=== PATIENT | female | born 1990 | race Caucasian/White ===

== ENCOUNTER 2020-07-31 07:51 | Inpatient (IN) | payer OTHER, SELFPAY ==
[2020-07-31] VITALS (8 sets, daily range): BP systolic 102–127; BP diastolic 47–74; PULSE 76–98; RESP 13–20; TEMP 36.3–36.8; O2SAT 100; BMI 27.5
--- NOTE | ~2020-07-31 | CT_ITS ---
EXAMINATION: CT brain wo con EXAM DATE: 07/31/2020 08:55 INDICATION: New onset seizures. TECHNIQUE: Spiral CT of the head was performed without contrast. Axial, coronal and sagittal images were reviewed. The dose-length product (DLP) for this examination was 605.33 mGy-cm. The exposure w as tailored according to patient size, and iterative reconstruction (ASIR) was used as additional dos e reduction technique. There is no prior study for comparison. FINDINGS: There is no acute intraparenchymal hemorrhage. No evidence of intraparenchymal brain mass lesion. No evidence of acute infarction. There is no mass effect or midline shift. The ventricles are normal in size. There are no extra-axial collections. There are no acute calvarial fractures. T he orbits are unremarkable. Soft tissue is unremarkable. The visualized sinuses and mastoid air ginger ls are well aerated. IMPRESSION: Normal head CT examination. Reviewed, dictated and finalized at location A. IMPRESSION: Normal head CT examination.
--- NOTE | 2020-07-31 08:27 | ECG_ITS ---
Measurements Intervals [place] Rate: 95 P: 49 AR: 153 QRS: 42 QRSD: 88 T: 15 QT: 344 QTc: 434 Interpretive Statements SINUS RHYTHM POSSIBLE LEFT ATRIAL ENLARGEMENT BORDERLINE ST-T WAVE ABNORMALITY- ANTERIOR LEADS BORDERLINE ECG Electronically Signed On 07-31-2020 8:53:35 CDT by Jose E Caldera D.O.
--- NOTE | 2020-07-31 08:28 | ED.SEIZURE ---
HPI - Seizure General Chief Complaint: Seizure Stated Complaint: Seizure Time Seen by Provider: 07/31/20 08:09 Source: patient Mode of arrival: EMS Limitations: no limitations History of Present Illness HPI Narrative: 29-year-old female G3, P2 Currently approximately [address] Woods for care Arrives per EMS after reportedly having a seizure at home today Witnessed to the seizure is not here at this time but it was said to be generalized and brief and self-limited and followed by a brief postictal period which had improved by the time she arrived here She did bite her tongue and she does complain that her jaw is sore No prior history of seizures, no problems with any of her earlier pregnancies, no history of hypertension or -induced hypertension previously MD complaint: seizure Related Data Home Medications Medication Instructions Recorded Confirmed docosahexaenoic acid [DHA ] mg PO 07/31/20 Allergies Allergy/AdvReac Type Severity Reaction Status Date / Time ibuprofen Allergy Swelling Verified 07/31/20 07:58 Review of Systems Review of Systems: All systems reviewed & are unremarkable except as noted in HPI and below Constitutional: Constitutional: Reports no additional constitutional complaints, Denies chills, Denies fever(s) and Denies headache(s) Eyes: Eyes: Reports no additional eye complaints and Denies change in vision ENT: Denies headache(s) and Denies sore throat Comments: Sore jaw, wound to tongue Cardiovascular: Cardiovascular: Denies chest pain and Denies dyspnea Respiratory: Respiratory: Denies cough and Denies dyspnea Gastrointestinal: Gastrointestinal: Denies abdominal pain, Denies diarrhea and Denies vomiting Genitourinary: Genitourinary: Denies urinary frequency and Denies dysuria Musculoskeletal: Musculoskeletal: Reports myalgias, Denies deformity, Denies arthralgias, Denies joint swelling and Denies numbness Integumentary/Breasts: Skin/Breast: Denies rash and Denies wounds Neurologic: Denies headache(s), Denies focal weakness and Denies numbness Psychiatric: Psychiatric: Reports no additional psychiatric complaints Endocrine: Endocrine: Reports no additional endocrine complaints Hematologic/Lymphatic: Hematologic/Lymphatic: Reports no additional hematologic/lymphatic complaints Allergic/Immunologic: Allergic/Immunologic: Reports no additional allergic/immunologic complaints Exam Const: General: cooperative, no acute distress and alert Orientation/consciousness: patient oriented x3 (alert) HENMT: Head: normocephalic and atraumatic Ears: external ears normal General nose exam: no epistaxis Other: Minor laceration/contusion to the right side of the tongue Eyes: Conjunctivae: conjunctivae normal EOM: EOMs intact bilaterally Neck: Neck: normal visual inspection, no meningeal signs, supple and no JVD Resp: Effort & Inspection: normal respiratory effort and not labored Auscultation: clear to auscultation bilaterally and other (BS =) Cardio: Rate: regular rate Rhythm: regular rhythm Heart sounds: no murmurs GI: GI Palp: Yes Soft to palpation and No Tenderness to palpation present (GI) Other: Size consistent with stated dates Skin: General skin exam: normal color and no rashes or lesions noted Neuro: General: patient oriented x3 (alert) and moves all extremities Speech: normal speech Extrem: General: normal to inspection Psych: Affect: normal affect Course Course Emergency Course: Labs to evaluate for possible eclampsia/preeclampsia are ordered and pending discussed with Dr. Alba and following our work-up she will be sent over there for monitoring and consideration of admission, Calli would be preferred for non eclampsia/preeclampsia related episodes Vital Signs Vital signs: Vital Signs Temperature 36.3 C L 07/31/20 07:49 Pulse Rate 98 07/31/20 07:49 Respiratory Rate 18 07/31/20 07:49 Blo
[2020-07-31 08:45] LABS: Add Urine Microscopic? YES; Appearance Urine Clear (Clear); Bilirubin Urine Negative (Negative); Blood Urine Negative (Negative); Color Urine Yellow (Yellow); Glucose Urine UA Negative (Negative); Ketones Urine Negative (Negative); Leukocyte Esterase Ur Negative LEU/UL (Negative); Mucus Urine Rare /lpf; Nitrate Urine Negative (Negative); Protein Urine 1+ mg/dL (Negative); RBC Urine 0-2 /hpf (0-2); Specific Grav Ur 1.017 (1.001-1.035); Squamous Epithelial Cell Urine Moderate /hpf (Few); Urobilinogen Urine Negative mg/dL (<2.0); WBC Urine 0-3 /hpf
[2020-07-31 08:58] LABS: Basophils Percent Auto 0.4 % (0.2-1.2); Eosinophils Absolute Auto 0.1 K/mm3 (0-0.3); Eosinophils Percent Auto 0.7 % (0-4.4); Hematocrit 37.6 % (37.0-47.0); Hemoglobin 13.3 g/dL (12.0-15.0); Immature Granulocyte Absolute 0.12 K/mm3 (0.00-0.031); Immature Granulocyte Percent A 1.3 % (0-0.5); Lymphocytes Absolute Auto 0.99 K/mm3 (0.9-3.2); Lymphocytes Percent Auto 10.8 % (18.3-44.2); Mean Corpuscular HGB Conc 35.4 g/dl (32-36); Mean Corpuscular Hemoglobin 32.9 pg (26-34); Mean Corpuscular Volume 93.1 fl (80-100); Mean Platelet Volume 8.9 fl (7.4-10.4); Monocytes Absolute Auto 0.3 K/mm3 (0.1-0.6); Monocytes Percent Auto 3.5 % (2.6-8.5); Neutrophils Absolute Auto 7.7 K/mm3 (1.3-6.7); Neutrophils Percent Auto 83.3 % (45.5-73.1); Platelet Count Result 210 k/mm3 (150-375); Red Blood Count 4.04 M/mm3 (4.2-5.4); Red Cell Distribution Width 12.2 % (11.5-14.5); White Blood Count 9.2 K/mm3 (4.5-10.0)
[2020-07-31 09:09] LABS: Magnesium 1.6 mg/dL (1.6-2.3)
[2020-07-31 09:10] LABS: Alanine Aminotransferase 9 U/L (4-35); Albumin Level 3.6 g/dL (3.5-5.1); Alkaline Phosphatase 46 U/L (38-126); Anion Gap 3 mmol/L (8-16); Aspartate Amino Transferase 23 U/L (14-36); Bilirubin,Total 0.3 mg/dL (0.2-1.3); Blood Urea Nitrogen 7 mg/dL (7-17); Calcium 8.4 mg/dL (8.4-10.2); Carbon Dioxide 24 mmol/L (22-30); Chloride 107 mmol/L (98-107); Estimated CRCL calculation 133 ml/min; Estimated Glomerular Filt Rate > 60; Glucose 79 mg/dL (65-105); Potassium 4.1 mmol/L (3.4-5.0); Sodium 134 mmol/L (137-145); Uric Acid 4.3 mg/dL (2.5-7.5)
[2020-07-31] MEDS: levETIRAcetam 500MG/NACL 100ML 500 MG/100 ML BAG 400 MG IVPB (09:17)
[2020-07-31] MEDS: CALCIUM CARBONATE (TUMS) 500 MG (200 MG ELEMENTAL) PO ×2 (10:26→18:45)
[2020-07-31] MEDS: MAGNESIUM SULF 4 GM/WATER100ML 4 GM/100 ML BAG IVPB (10:58)
--- NOTE | 2020-07-31 12:01 | OBADM ---
This patient, Jing Hollingsworth, admitted to the OB room Labor/Delivery/Recovery 118 for observation. Patient/family oriented to hospital policies and general routines including ID bracelet, bed and alarms, visiting hours, pain management, procedures, bathroom and other care routines, personal items, smoking policy, room service/diet, and visiting hours. Patient/Family are encouraged to report perceived risks to care and to ask questions if they do not understand what they are told or what they should do.
[2020-07-31] MEDS: ACETAMINOPHEN 325 MG TABLET 650 MG PO (12:38)
[2020-07-31] MEDS: levETIRAcetam 500 MG TABLET PO (21:06)
--- NOTE | 2020-07-31 21:59 | PC.NURSE ---
Received from OB for tele monitoring pt alert and oriented to new room. Pt voices no c/o other slight headache. Consult completed for Dr. Farmer.24 hour urine in progress.
[2020-08-01] VITALS (13 sets, daily range): BP systolic 101–124; BP diastolic 51–65; PULSE 70–100; RESP 14–20; TEMP 36.4–36.8; O2SAT 99–100
[2020-08-01] MEDS: levETIRAcetam 500 MG TABLET PO ×2 (08:00→20:38)
--- NOTE | 2020-08-01 10:20 | PM.IMHP ---
H&P: HPI History of Present Illness Date/Time: 08/01/20 10:20 29 yo at 25w who is admitted for observation after suffered an observed seizure. pt states she was sleeping and was woken up by her . She states her heard her make a loud noise in her sleep and then noticed her having a seizure. He states her arms were straightened along her sides with clinched fists and her jaw was clinched tight. She was noted to be shaking. He states that she was incoherent for a minute after the seizure had stopped. Pt has never had a seizure before. She reports a paternal grandmother with epilepsy. She was lying in bed and did not fall or have any trauma to her head or abdomen. Pt endorses good movement throughout. She denies any contractions, leakage of fluid or vaginal bleeding. Pt states she feels well overall since being in the hospital. Chief Complaint: seizure in Review of Systems Review of Systems: All systems reviewed & are unremarkable except as noted in HPI and below Meds Home Medications and Allergies Home Medications Medication Instructions Recorded Confirmed Type docosahexaenoic acid [DHA ] 200 mg PO DAILY 07/31/20 07/31/20 History Allergies Allergy/AdvReac Type Severity Reaction Status Date / Time ibuprofen Allergy Swelling Verified 07/31/20 07:58 Vital Signs Vital Signs - 24 hr 07/31/20 11:16 07/31/20 18:26 07/31/20 19:36 Temperature 36.8 C Pulse Rate 81 80 80 Respiratory Rate 20 Blood Pressure 102/63 106/47 L Blood Pressure [Right Arm] 106/47 L Pulse Oximetry 100 07/31/20 21:40 07/31/20 21:45 08/01/20 00:00 Temperature 36.4 C L Pulse Rate 76 80 70 Respiratory Rate 20 20 Blood Pressure 101/52 L Blood Pressure [Right Arm] Pulse Oximetry 100 99 08/01/20 04:00 08/01/20 04:08 Temperature 36.4 C L Pulse Rate 71 76 Respiratory Rate 20 Blood Pressure 112/55 L Blood Pressure [Right Arm] Pulse Oximetry 99 Exam Const: General: cooperative, healthy appearing, comfortable and no acute distress Nutritional Appearance: average body habitus and well nourished Orientation/consciousness: patient oriented x3 Limitations: no limitations HENMT: Head: normal to inspection Eyes: General: appearance normal, both eyes and all related structures Neck: Neck: normal visual inspection Resp: Effort & Inspection: normal respiratory effort and able to speak in complete sentences Cardio: Rate: regular rate Rhythm: regular rhythm GI: Inspection: normal to inspection (Gravid) GI Palp: No abdominal tenderness Skin: General skin exam: normal color and no rashes or lesions noted Assessment and Plan Assessment and plan (1) New onset seizure: Code(s): R56.9 - Unspecified convulsions Status: Acute Assessment and Plan: pt had 1 witnessed seizure episode in pt denies any abdominal or head trauma Pt denies any history of seizures head CT normal EKG normal for no obvious lab abnormalities appreciated Pt currently on [facility] Neurology consult placed, will base further management on Neurology recommendations (2) Supervision of high risk , unspecified, third trimester: Code(s): O09.93 - Supervision of high risk , unspecified, third trimester Status: Acute Assessment and Plan: 29 yo at 25w GA new onset seizure in NST reactive for GA denies any contractions BP wnl PIH labs wnl No concern for eclampsia at this time will continue twice daily NST's while inpatient No obstetric concerns at this time
--- NOTE | 2020-08-01 13:07 | WPDNEURCNPN ---
Assessment and Plan Assessment and plan (1) New onset seizure: Code(s): R56.9 - Unspecified convulsions Status: Acute Additional Plan 1st seizure in her life without history of any head trauma, febrile seizure during childhood and normal neurological examination will obtain the EEG and start her on Keppra 500 mg q.12 hours Consult date: 08/02/20 Time Seen: 13:00 HPI: Jing Hollingsworth is a 29 year old female Has been admitted to the hospital for the complaints of seizure. Reportedly she was sleeping and was woken up by her . He heard her make a loud noise in her sleep and then had noted her having a seizure her arms were straightened along her side with a clinched fist and her jaw was clenched tight as well she was shaking all over she was incoherent for a minute after the seizure had stopped patient gave no history of having had seizure in the past particularly no history of having a febrile seizure rest of the history was noncontributory. evaluation up until now includes normal CBC, normal electrolytes, he had a negative head CT scan and EEG is being ordered Review of Systems Review of Systems: All systems reviewed & are unremarkable except as noted in HPI and below Meds Home Medications and Allergies Home Medications Medication Instructions Recorded Confirmed Type docosahexaenoic acid [DHA ] 200 mg PO DAILY 07/31/20 07/31/20 History Allergies Allergy/AdvReac Type Severity Reaction Status Date / Time ibuprofen Allergy Swelling Verified 07/31/20 07:58 Vital Signs Vital Signs - 24 hr 07/31/20 18:26 07/31/20 19:36 07/31/20 21:40 Temperature 36.8 C Pulse Rate 80 80 76 Respiratory Rate 20 Blood Pressure 106/47 L Blood Pressure [Right Arm] 106/47 L Pulse Oximetry 07/31/20 21:45 08/01/20 00:00 08/01/20 04:00 Temperature 36.4 C L 36.4 C L Pulse Rate 80 70 71 Respiratory Rate 20 20 20 Blood Pressure 101/52 L 112/55 L Blood Pressure [Right Arm] Pulse Oximetry 100 99 99 08/01/20 04:08 08/01/20 08:00 08/01/20 10:00 Temperature 36.6 C Pulse Rate 76 73 91 Respiratory Rate 14 Blood Pressure 105/56 L Blood Pressure [Right Arm] Pulse Oximetry 100 08/01/20 12:00 Temperature Pulse Rate 96 Respiratory Rate Blood Pressure Blood Pressure [Right Arm] Pulse Oximetry Exam Const: General: cooperative, comfortable, no acute distress, alert and awake Orientation/consciousness: oriented to person, oriented to place and oriented to time Limitations: no limitations HENMT: Head: normocephalic and atraumatic Ears: hearing grossly normal bilaterally General nose exam: Normal external nose present Face and sinus: normal facial exam Eyes: General: appearance normal, both eyes and all related structures Visual Sevilla: normal visual sevilla by confrontation Alignment and Position: alignment normal Periorbital: periorbital findings normal Eyelids: eyelids normal Conjunctivae: conjunctivae normal Sclera: sclerae normal Cornea: corneas normal EOM: EOMs intact bilaterally Neck: Neck: full ROM Resp: Effort & Inspection: normal respiratory effort Auscultation: clear to auscultation bilaterally Cardio: Rate: regular rate Rhythm: regular rhythm Skin: General skin exam: no rashes or lesions noted Neuro: General: patient oriented x3 Cranial nerves: Yes CN's II-XII intact bilaterally Cognition (Neuro): normal cognition Speech: normal speech Motor exam (neuro): 5/5 motor strength present throughout Sensory Exam: normal sensation Coordination: [id number] test normal Psych: Appearance: grossly normal Results Labs CBC & Chem 7: 07/31/20 08:49 07/31/20 08:49
[2020-08-01] MEDS: ACETAMINOPHEN 325 MG TABLET 650 MG PO ×2 (14:47→23:55)
[2020-08-01] MEDS: CALCIUM CARBONATE (TUMS) 500 MG (200 MG ELEMENTAL) PO (19:58)
--- NOTE | 2020-08-01 20:11 | PC.NURSE ---
Pt c/o having a gas bubble with some upper abd and chest pain, skin warm and dry tele continues to show NSR, no resp. distress. Pt states she has had this before but does feel different. Tums given and will recheck status.
[2020-08-02] VITALS (7 sets, daily range): BP systolic 100–119; BP diastolic 49–59; PULSE 83–104; RESP 16; TEMP 36.6–36.8; O2SAT 98–99
[2020-08-02] MEDS: levETIRAcetam 500 MG TABLET PO (08:05)
[2020-08-02] MEDS: ACETAMINOPHEN 325 MG TABLET 650 MG PO (08:05)
--- NOTE | 2020-08-02 10:46 | P.NEURO_ITS ---
Neurology EEG Report General Information Date of Study: 08/02/20 TEST EEG DIAGNOSIS SEIZURE CONDITION OF RECORDING awake drowsy and sleep EEG NUMBER [id number] CLINICAL HISTORY patient is 26 weeks and had a seizure-like activity while sleeping. No previous history of seizures EEG DESCRIPTION Basic resting occipital frequency consists of large amount of well-organized medium to high-voltage 9 to 11 hertz per second alpha. During drowsiness low- voltage beta activity seen diffusely admixed with waxing and waning posterior alpha rhythm and minimal amount of theta activity anteriorly. Bilateral symmetrical sleep activity seen during sleep. Non paroxysmal. Nonfocal. Nonlateralizing. IMPRESSION normal record without evidence of any paroxysmal discharge or any abnormal activity. clinical correlation recommended
--- NOTE | 2020-08-02 11:24 | WPDNEUROPN ---
Progress Note: A&P Assessment and Plan (1) New onset seizure: Code(s): R56.9 - Unspecified convulsions Status: Acute Additional Plan patient can be discharged on Keppra 500 mg q.12 hours with instruction follow in the office . Objective Data Vital Signs Vital Signs: Vital Signs - 24 hr 08/01/20 12:00 08/01/20 14:00 08/01/20 14:50 Temperature 36.4 C L Pulse Rate 96 87 95 Respiratory Rate 14 Blood Pressure 105/65 Blood Pressure [Right Arm] 111/51 L Pulse Oximetry 99 08/01/20 16:00 08/01/20 18:51 08/01/20 20:00 Temperature 36.8 C Pulse Rate 96 88 92 Respiratory Rate 18 16 Blood Pressure 106/57 L Blood Pressure [Right Arm] Pulse Oximetry 100 100 08/01/20 21:17 08/01/20 22:59 08/02/20 00:00 Temperature 36.6 C Pulse Rate 92 99 90 Respiratory Rate 16 Blood Pressure 124/52 L Blood Pressure [Right Arm] 109/53 L Pulse Oximetry 100 08/02/20 01:49 08/02/20 04:00 08/02/20 05:23 Temperature 36.6 C 36.6 C Pulse Rate 103 H 84 94 Respiratory Rate 16 16 Blood Pressure 119/59 L 117/50 L Blood Pressure [Right Arm] Pulse Oximetry 99 99 08/02/20 08:00 08/02/20 09:00 Temperature Pulse Rate 100 104 H Respiratory Rate Blood Pressure Blood Pressure [Right Arm] 102/54 L Pulse Oximetry Intake/Output Intake/Output: Intake & Output 07/30/20 07/31/20 08/01/20 08/02/20 23:59 23:59 23:59 23:59 Intake Total 146.4 1880 300 Output Total 900 650 Balance -753.6 1230 300 Meds/Results Medications: Active Medications Generic Name Dose Route Start Last Admin Trade Name Freq PRN Reason Stop Dose Admin Acetaminophen 650 mg 07/31/20 12:08 08/02/20 08:05 Acetaminophen 325 Mg Tablet PO 650 mg Q4H PRN Administration Headache Calcium Carbonate 200 mg 07/31/20 18:30 08/01/20 19:58 Calcium Carbonate (Tums) 500 Mg (200 Mg Elemental) PO 200 mg Q6H PRN Administration Indigestion Levetiracetam 500 mg 07/31/20 21:00 08/02/20 08:05 Levetiracetam 500 Mg Tablet PO 500 mg Q12HR CHAR Administration Radiology Results: ITS Impressions Head CT 07/31/20 09:05 IMPRESSION: Normal head CT examination.
--- NOTE | 2020-08-02 11:36 | PM.OBPNVD ---
OB - PN: Subj Subjective Date/time seen: 08/02/20 11:36 Feels fine, would like to go home. EEG negative and neurology has said she may be discharged. OB - PN: Obj Data Labs CBC & Chem 7: 07/31/20 08:49 07/31/20 08:49 OB - PN A/P Assessment and Plan (1) Supervision of high risk , unspecified, third trimester: Code(s): O09.93 - Supervision of high risk , unspecified, third trimester Status: Acute (2) New onset seizure: Code(s): R56.9 - Unspecified convulsions Status: Acute Assessment and Plan: A: IUP at 25 weeks with new onset seizure. P: Home on Keppra 500 mg po q 12 hours. F/u with me as scheduled. F/u with neurology after delivery. Review of Systems Review of Systems: All systems reviewed & are unremarkable except as noted in HPI and below Exam GI: Other: ABD soft, nontender, gravid NST good variability TOCO: no contractions EXT nontender
--- NOTE | 2020-08-02 11:39 | PM.DS ---
DS: Admitting Diagnosis Admitting Diagnosis Admitting Diagnosis: IUP at 25 weeks with new onset seizure. DS: Discharge Diagnosis Discharge Diagnosis (1) Supervision of high risk , unspecified, third trimester: Code(s): O09.93 - Supervision of high risk , unspecified, third trimester Status: Acute (2) New onset seizure: Code(s): R56.9 - Unspecified convulsions Status: Acute DS: Summary Hospital Course Hospital Course: 29 y/o at 25 weeks with new onset seizure. EEG and head CT neg. Stable on Keppra. Seen by neurology. Home to f/u OB care as scheduled. F/u with Dr. Farmer after delivery. Discharge Plan Discharge Attending physician on discharge: Damaso Woods Consulting providers: Zion Breman ; Slim Farmer Discharging Clinician: Damaso Woods Patient Disposition: Home, Self-Care Activity: unlimited Diet: regular Discharge Instructions: No driving See Dr. Farmer after your delivery. Call his office with any concerns and you can be seen earlier, if needed. Stand Alone Forms: General Discharge Information Follow-up/Referrals: Slim Farmer MD [Physician] - Call for Appointment Damaso Woods MD [Physician] - Keep Reg. Scheduled Appt. Discharge Medications: New levetiracetam [Keppra] 500 mg Tablet 500 mg PO Q12HR 30 Days Qty: 60 RF: 0 Continued DHA 200 mg Capsule 200 mg PO DAILY RF: 0 Date of admission: 07/31/20 11:37 Primary Care Provider: Joselin,Latonya Calvillo Admitting Provider: Enrrique Alba Attending physician on admission: Enrrique Alba Condition: Stable
[2020-08-02 14:00] LABS: Total Volume 24 Hour Urine 1000 ml
[2020-08-02 14:06] LABS: Total Protein Urine 24 Hr 100 MG/DAY (28-141); Total Protein Urine Random 10 mg/dL
== END 2020-08-02 13:35 | disposition home or self-care (01) | DRG 833 ==
LOC: ANHED 10:54 → ANHLDR 12:22 → ANH2MED 08-01 04:47 → ANHLDR 08-03 13:55
PROVIDERS: Admitting Provider Student in an Organized Health Care Education/Training Program; Emergency Provider Emergency Medicine; PCP Internal Medicine; Visit Provider Obstetrics & Gynecology
DX: O26.892 Other specified pregnancy related conditions, second trimester (principal); R56.9 Unspecified convulsions; Z3A.25 25 weeks gestation of pregnancy
CPT/HCPCS: 36415; 51701; 59025; 70450; 80053; 81001; 81050; 83735; 84156; 84550; 85025; 93005; 95816; 96365; 96375; 99285; A9270; J1953; J3475

== ENCOUNTER 2020-11-15 06:40 | Inpatient (IN) | payer OTHER, SELFPAY ==
[2020-11-15] VITALS (125 sets, daily range): BP systolic 71–144; BP diastolic 33–124; PULSE 55–172; RESP 16; TEMP 36.2–36.9; O2SAT 80–100; BMI 28.8
--- NOTE | 2020-11-15 07:19 | WPDHPUPDATE1 ---
History and Physical Update Update Date/Time: 11/15/20 07:19 29 yo at 40w6d who presents for IOL for dates. Pt is complicated by prior x1. She has had a successful in her G2. also complicated by seizure disorder controlled on Keppra. History and Physical has been reviewed, including an updated exam of the patient. There are NO changes in the patient's condition. Risks, benefits, and alternatives have been discussed and questions answered. Patient agrees to proceed with procedure. A/P: 29 yo who presents for IOL for dates prior c/s x1, in G2 Rh+ GBS+, PCN in labor pitocin IOL will augment with AROM after abx FHT cat 1 continous EFM
[2020-11-15] MEDS: LACTATED RINGERS 1,000 ML 125 ML IV CONT ×3 (07:28→16:03)
[2020-11-15] MEDS: AMPICILLIN 2 GM/NS 100 ML 2 GM/100 ML BAG IVPB (07:28)
[2020-11-15 07:37] LABS: Basophils Percent Auto 0.5 % (0.2-1.2); Eosinophils Absolute Auto 0.1 K/mm3 (0-0.3); Eosinophils Percent Auto 0.9 % (0-4.4); Hematocrit 36.6 % (37.0-47.0); Hemoglobin 12.6 g/dL (12.0-15.0); Immature Granulocyte Absolute 0.08 K/mm3 (0.00-0.031); Lymphocytes Absolute Auto 1.74 K/mm3 (0.9-3.2); Lymphocytes Percent Auto 22.4 % (18.3-44.2); Mean Corpuscular HGB Conc 34.4 g/dl (32-36); Mean Corpuscular Hemoglobin 32.1 pg (26-34); Mean Corpuscular Volume 93.4 fl (80-100); Mean Platelet Volume 10.1 fl (7.4-10.4); Monocytes Absolute Auto 0.4 K/mm3 (0.1-0.6); Monocytes Percent Auto 5.7 % (2.6-8.5); Neutrophils Absolute Auto 5.4 K/mm3 (1.3-6.7); Neutrophils Percent Auto 69.5 % (45.5-73.1); Platelet Count Result 179 k/mm3 (150-375); Red Blood Count 3.92 M/mm3 (4.2-5.4); Red Cell Distribution Width 12.1 % (11.5-14.5); White Blood Count 7.8 K/mm3 (4.5-10.0)
--- NOTE | 2020-11-15 07:56 | LDADM ---
This patient, Jing Hollingsworth, was admitted to Labor/Delivery/Recovery 106 on 11/15/20 at 06:40. Plans for labor, pain management and were discussed with patient. Patient/family oriented to hospital policies and general routines including ID bracelet, bed and alarms, visiting hours, pain management, procedures, bathroom and other care routines, personal items, smoking policy, room service/diet and guest tray routines, infant security routines, call light and visiting hours. Patient/Family are encouraged to report perceived risks to care and to ask questions if they do not understand what they are told or what they should do. See OBIX for further documentation.
[2020-11-15] MEDS: FAMOTIDINE 20 MG TABLET PO (08:59)
[2020-11-15] MEDS: levETIRAcetam 500 MG TABLET PO ×2 (08:59→20:44)
[2020-11-15] MEDS: OXYTOCIN 30 UNITS/NS 500 ML 30 UNITS/500 ML BAG IV CONT (09:00)
--- NOTE | 2020-11-15 09:21 | P.PNAN_ITS ---
Anes - Eval Pre Procedure Procedure: labor epidural Date/Time: 11/15/20 09:21 Pre Op Diagnosis: IOL Patient Data Age: 30 Gender: F Height: 1.65 m Weight: 78.4 kg Last Vital Signs Pulse 81 11/15/20 08:31 BP 104/64 11/15/20 08:31 Allergies Allergy/AdvReac Type Severity Reaction Status Date / Time ibuprofen Allergy Swelling Verified 11/15/20 07:35 Home Medications Medication Instructions Recorded Confirmed Type docosahexaenoic acid 200 mg PO DAILY 07/31/20 10/10/20 History levetiracetam 500 mg tablet 500 mg PO Q12HR 30 Days #60 tablet 10/31/20 11/15/20 Rx Laboratory Tests 11/15/20 11/15/20 07:17 07:17 WBC 7.8 K/mm3 K/mm3 (4.5-10.0) RBC 3.92 M/mm3 L M/mm3 (4.2-5.4) Hgb 12.6 g/dL g/dL (12.0-15.0) Hct 36.6 % L % (37.0-47.0) MCV 93.4 fl fl (80-100) MCH 32.1 pg pg (26-34) MCHC 34.4 g/dl g/dl (32-36) RDW 12.1 % % (11.5-14.5) Plt Count 179 k/mm3 k/mm3 (150-375) MPV 10.1 fl fl (7.4-10.4) Immature Gran % (Auto) 1.0 % H % (0-0.5) Neut % (Auto) 69.5 % % (45.5-73.1) Lymph % (Auto) 22.4 % % (18.3-44.2) Charles % (Auto) 5.7 % % (2.6-8.5) Eos % (Auto) 0.9 % % (0-4.4) Baso % (Auto) 0.5 % % (0.2-1.2) Lymph # (Auto) 1.74 K/mm3 K/mm3 (0.9-3.2) Charles # (Auto) 0.4 K/mm3 K/mm3 (0.1-0.6) Eos # (Auto) 0.1 K/mm3 K/mm3 (0-0.3) Baso # (Auto) 0.0 K/mm3 K/mm3 (0.0-0.1) Abs Immat Gran (auto) 0.08 K/mm3 H K/mm3 (0.00-0.031) Absolute Neuts (auto) 5.4 K/mm3 K/mm3 (1.3-6.7) Absolute Nucleated RBC 0.0 K/mm3 K/mm3 (0.0-0.012) Nucleated RBC % 0.0 % % (0.0-0.2) RPR Pending Patient hx anesthesia problems: none Family hx anesthesia problems: none PMFSH Family History Family History Father Diabetes mellitus Social History Social History Smoking status: Never smoker Substance use: never Gender identity (if verbalized by the patient): Female Spiritual care concerns: No Exam Day of Procedure 11/15/20 09:21 Patient weight: overweight Heart: regular rate and rhythm Lungs: normal air movement Airway: Mallampati scale class II Neurological: alert and oriented
--- NOTE | 2020-11-15 09:57 | PM.OBPNLAB ---
Pain Control Date/time seen: 11/15/20 09:57 Pain control: tolerating well Pelvic Exam Dilation (cm): 2 Effacement (%): 50 station: -3 Amniotic membrane status: Intact Status status: Category l Assessment and Plan Comments: AROM attempted for scant amount of fluid. will continue pitocin induction
[2020-11-15 10:05] LABS: Rapid Plasma Reagin Non-Reactive (NonReactive)
[2020-11-15] MEDS: AMPICILLIN 1 GM/NS 50 ML 1 GM/50 ML BAG IVPB ×2 (11:26→15:58)
--- NOTE | 2020-11-15 12:31 | PM.OBPNLAB ---
Pain Control Date/time seen: 11/15/20 12:31 Pelvic Exam Dilation (cm): 3 Effacement (%): 50 station: -3 Amniotic membrane status: Ruptured Status status: Category l Assessment and Plan Comments: IUPC placed. Will increase pitocin
[2020-11-15] MEDS: miSOPROStol 200 MCG TABLET 800 MCG (19:42)
--- NOTE | 2020-11-15 19:45 | PM.OBPRVD ---
OB - Delivery Note Procedure Procedure: Patient pushed for a spontaneous vaginal delivery. The fetus was delivered atraumatically and placed on the maternal abdomen. The cord was clamped and cut after 1 minute of life. The cord was double clamped and cut and a segment of cord was collected for cord gases. Cord blood was collected for blood type and Coomb's testing. The placenta delivered spontaneously and was noted to be intact. The perineum was inspected and there R and L labial lacerations and a small shubham rectal lacerations of an external hemorrhoid. The lacerations were repaired with 3-0 vicryl in the usual fashion. The uterus was firm but a slow continuous flow of blood as noted from the uterus. 800 mcg of cytotec was placed NV. The patient and fetus were stable in the delivery room. events: Previous Intrapartal events: None Induction method: per pitocin protocol Delivery monitor: external FHT Route of delivery: Episiotomy description: None Laceration Description: Labial (left and right) Delivery repair: vicryl Specimen: No Quantitative Blood Loss (ml): 200 Anesthesia type: Epidural Disposition: floor () Complications: No immediate complications Baby Date of : 11/15/20 Time of : 19:24 Weeks of gestation at delivery: 40 gender: Male Weight (pounds): 8 Weight (ounces): 9 presentation: vertex position: Right Occiput Anterior Placenta delivery description: Spontaneous score one minute: 8 score five minutes: 9
[2020-11-15] MEDS: OXYTOCIN 30 UNITS/NS 500 ML 30 UNITS/500 ML BAG 125 UNITS IV CONT (19:56)
--- NOTE | 2020-11-15 23:18 | OBPPTRN ---
Patient transferred to post room # 292 via wheelchair. Support person present. Oriented to unit, room, information board, rooming in, admission packet and security measures. Patient verbalizes understanding.
[2020-11-15] MEDS: ACETAMINOPHEN 325 MG TABLET 650 MG PO (23:34)
[2020-11-16 03:48] VITALS: BP 121/65; PULSE 81; RESP 16; RESP 18; TEMP 36.9; O2SAT 97
[2020-11-16 05:59] LABS: Hemoglobin 11.8 g/dL (12.0-15.0)
--- NOTE | 2020-11-16 06:45 | PM.OBPNVD ---
OB - PN: Subj Subjective Date/time seen: 11/16/20 06:45 Patient comments: no complaints, pain well controlled and tolerating diet feeding status: exclusively breast feeding Narrative: patient doing well this AM. No complaints. Pain is well controlled. She reports minimal bleeding. She is ambulating and voiding without difficulty. She is tolerating PO. She denies N/V, fever, chills. OB - PN: Obj Data Labs CBC & Chem 7: 11/16/20 05:20 Labs: Laboratory Results - last 24 hr 11/15/20 11/15/20 11/15/20 07:17 07:17 07:17 WBC 7.8 RBC 3.92 L Hgb 12.6 Hct 36.6 L MCV 93.4 MCH 32.1 MCHC 34.4 RDW 12.1 Plt Count 179 MPV 10.1 Immature Gran % (Auto) 1.0 H Neut % (Auto) 69.5 Lymph % (Auto) 22.4 [place] % (Auto) 5.7 Eos % (Auto) 0.9 Baso % (Auto) 0.5 Lymph # (Auto) 1.74 [place] # (Auto) 0.4 Eos # (Auto) 0.1 Baso # (Auto) 0.0 Abs Immat Gran (auto) 0.08 H Absolute Neuts (auto) 5.4 Absolute Nucleated RBC 0.0 Nucleated RBC % 0.0 RPR Non-reactive Blood Type A Positive Antibody Screen Negative 11/16/20 05:20 WBC RBC Hgb 11.8 L Hct 35.0 L MCV MCH MCHC RDW Plt Count MPV Immature Gran % (Auto) Neut % (Auto) Lymph % (Auto) [place] % (Auto) Eos % (Auto) Baso % (Auto) Lymph # (Auto) [place] # (Auto) Eos # (Auto) Baso # (Auto) Abs Immat Gran (auto) Absolute Neuts (auto) Absolute Nucleated RBC Nucleated RBC % RPR Blood Type Antibody Screen OB - PN A/P Plan day: 1 Plan: routine care Comments: patient doing well H/H plan for circumcision today. risks, benefits and alternatives discussed. consent obtained continue routine care Time Spent With Patient Time: Total time spent is greater than 50% in coordination of care (as documented) at patient's floor/unit and/or counseling patient: Time with patient: less than 15 minutes Review of Systems Review of Systems: All systems reviewed & are unremarkable except as noted in HPI and below Exam Const: General: comfortable and no acute distress Resp: Effort & Inspection: normal respiratory effort Cardio: Rate: regular rate GI: GI Palp: Yes Soft to palpation and No Tenderness to palpation present (GI) Auscultation: normal bowel sounds Other: fundus firm and below umbilicus. Psych: Affect: normal affect
[2020-11-16 07:40] VITALS: BP 104/64; PULSE 70; RESP 18; TEMP 37.3; O2SAT 98
--- NOTE | 2020-11-16 08:02 | WPDANLDPN2 ---
Anes-Prog Note L&D Date/Time: 11/16/20 08:02 Comfortable throughout: labor and delivery Neuraxial method: epidural Epidural/Spinal procedure site: clean & non-tender Neuro status: Neuro function grossly intact. Cardiovascular status: normal Respiratory status: normal Airway patency: baseline Mental status: baseline Post-Op hydration status: normal Vital Signs: Last Vital Signs Temp 36.9 C 11/16/20 03:48 Pulse 81 11/16/20 03:48 Resp 18 11/16/20 03:48 BP 121/65 11/16/20 03:48 Pulse Ox 97 11/16/20 03:48 Pain score (VAS): 0 I/O: Intake & Output 11/15/20 11/16/20 11/16/20 23:59 07:59 15:59 Intake Total 2150 Output Total 248 Balance 1902 Post-procedural complaints: none Patient feedback: Patient satisfied with anesthetic care.
[2020-11-16] MEDS: MULTIVIT/MIN/PREN/FOL AC/IRON TABLET 1 TAB PO (09:02)
[2020-11-16] MEDS: ACETAMINOPHEN 325 MG TABLET 650 MG PO ×3 (09:03→20:59)
[2020-11-16] MEDS: levETIRAcetam 500 MG TABLET PO ×2 (09:03→20:59)
[2020-11-16 12:06] VITALS: BP 111/57; PULSE 76; RESP 16; TEMP 37.1; O2SAT 98
[2020-11-16] MEDS: TETANUS,DIPHTHERIA,AC PERTUSSIS ADULT (0.5 ML) BOOSTRIX IM (15:31)
[2020-11-16 15:55] VITALS: BP 121/67; PULSE 81; RESP 18; TEMP 37.4
[2020-11-16 19:55] VITALS: BP 134/79; PULSE 76; RESP 16; TEMP 36.5; O2SAT 100
[2020-11-17] MEDS: ACETAMINOPHEN 325 MG TABLET 650 MG PO (04:57)
--- NOTE | 2020-11-17 06:47 | PM.OBDSVD ---
DS: Admitting Diagnosis Admitting Diagnosis intrauterine at term prior OB - DS: Summary OB Procedures : None OB Procedures Intrapartum: Spontaneous Vag Delivery OB Procedures: : None Status at Discharge Functional status at discharge: independent ambulation Overall status at discharge: patient is back to baseline Time Spent with Patient Time attestation: Total time spent providing and/or coordinating discharge services: Time spent: Less than 30 minutes Exam Const: General: comfortable and no acute distress Resp: Effort & Inspection: normal respiratory effort Auscultation: clear to auscultation bilaterally Cardio: Rate: regular rate GI: GI Palp: Yes Soft to palpation Auscultation: normal bowel sounds Other: Fundus firm below umbilicus Psych: Appearance: grossly normal Mental Status: mental status grossly normal Affect: normal affect DS: Data Data Completed and Pending Labs on day of discharge: Labs from last 24 hours 11/16/20 11/15/20 11/15/20 05:20 07:17 07:17 WBC RBC Hgb 11.8 L Hct 35.0 L MCV MCH MCHC RDW Plt Count MPV Immature Gran % (Auto) Neut % (Auto) Lymph % (Auto) [place] % (Auto) Eos % (Auto) Baso % (Auto) Lymph # (Auto) [place] # (Auto) Eos # (Auto) Baso # (Auto) Abs Immat Gran (auto) Absolute Neuts (auto) Absolute Nucleated RBC Nucleated RBC % RPR Non-reactive Blood Type A Positive Antibody Screen Negative 11/15/20 07:17 WBC 7.8 RBC 3.92 L Hgb 12.6 Hct 36.6 L MCV 93.4 MCH 32.1 MCHC 34.4 RDW 12.1 Plt Count 179 MPV 10.1 Immature Gran % (Auto) 1.0 H Neut % (Auto) 69.5 Lymph % (Auto) 22.4 [place] % (Auto) 5.7 Eos % (Auto) 0.9 Baso % (Auto) 0.5 Lymph # (Auto) 1.74 [place] # (Auto) 0.4 Eos # (Auto) 0.1 Baso # (Auto) 0.0 Abs Immat Gran (auto) 0.08 H Absolute Neuts (auto) 5.4 Absolute Nucleated RBC 0.0 Nucleated RBC % 0.0 RPR Blood Type Antibody Screen Discharge Plan Discharge Discharging Clinician: Enrrique Alba Patient Disposition: Home, Self-Care Activity: as tolerated and pelvic rest Diet: regular Discharge Instructions: call or return for temperature >100.4, bleeding >2 pads/hr for 2 hrs, pain not controlled with medications, signs/symptoms of mastitis Patient Instructions: Antibiotic Form, Vaginal Delivery (DC) Stand Alone Forms: General Discharge Information Follow-up/Referrals: Damaso Woods MD [Physician] - 4 Weeks Discharge Medications: New acetaminophen [Mapap (acetaminophen)] 325 mg Tablet 650 mg PO Q6H PRN (Reason: Mild Pain (1-3) Or Headache) Qty: 30 RF: 0 Continued levetiracetam [Keppra] 500 mg tablet 500 mg PO Q12HR 30 Days Qty: 60 RF: 1 Discontinued docosahexaenoic acid 200 mg Capsule 200 mg PO DAILY RF: 0 Date of admission: 11/15/20 06:40 Primary Care Provider: JoselinLatonya Admitting Provider: Damaso Woods Attending physician on admission: Damaso Woods Condition: Stable
[2020-11-17 07:30] VITALS: BP 110/63; PULSE 59; RESP 16; TEMP 36.6; O2SAT 98
[2020-11-17] MEDS: levETIRAcetam 500 MG TABLET PO (09:44)
[2020-11-17] MEDS: MULTIVIT/MIN/PREN/FOL AC/IRON TABLET 1 TAB PO (09:44)
--- NOTE | 2020-11-17 09:50 | PC.NURSE ---
Consult with pt., mother reports infant was cluster feeding during the night. Mother has slight tenderness to nipples with freq feedings. Stressed good nipple care of lanolin and warm compresses. Mother is able to independently latch infant with appropriate positioning/alignment. She has slight nipple discomfort, is feeding as required and waking infant to feed if needed. Infant has had at least 8 effective feedings in the past 24 hours, and is currently meeting outcomes for weight, output, jaundice and feeding frequencies. Mother states she feels confident to continue effective at home. Mother has supplemented at times due to infant sleepiness or if she feels is not satisfied. Reviewed transition to breast milk, signs of adequate intake, and engorgement/relief. Instructed to call ICP if intake/output less than required. Reviewed regular medications mother is taking. Information provided per Brenda. Reviewed community resources on the [facility] website and in the Mom/Baby guide. Information on outpatient services provided. Mother has no further questions at this time.
--- NOTE | 2020-11-17 12:08 | PC.NURSE ---
Patient instructed to view the discharge video Mother & Baby Care, The First Two Weeks . Patient was given the opportunity and encouraged to ask questions. Patient verbalized understanding of information shared and has been given the mother/baby guide for home reference.
[2020-11-18 08:33] VITALS: BP 103/65; PULSE 72; RESP 20; TEMP 36.8; O2SAT 100
== END 2020-11-17 12:15 | disposition home or self-care (01) | DRG 806 ==
LOC: ANHOB2 11-17 11:01 → ANHLDR 11-18 11:23 → ANHOB2 11-18 11:23
PROVIDERS: Admitting Provider Student in an Organized Health Care Education/Training Program; PCP Internal Medicine; Visit Provider Student in an Organized Health Care Education/Training Program
DX: O34.211 Maternal care for low transverse scar from previous cesarean delivery (principal); O99.354 Diseases of the nervous system complicating childbirth; Z37.0 Single live birth; O22.43 Hemorrhoids in pregnancy, third trimester; Z3A.40 40 weeks gestation of pregnancy; O36.8330 Maternal care for abnormalities of the fetal heart rate or rhythm, third trimester, not applicable or unspecified; O99.824 Streptococcus B carrier state complicating childbirth; O70.0 First degree perineal laceration during delivery; G40.909 Epilepsy, unspecified, not intractable, without status epilepticus
CPT/HCPCS: 36415; 85014; 85018; 85025; 86592; 86850; 86900; 86901; 90715; A9270; J0290; J2590; J2795; J7120

== ENCOUNTER 2023-08-07 11:09 | Inpatient (IN) | payer OTHER, SELFPAY ==
[2023-08-07] VITALS (106 sets, daily range): BP systolic 83–129; BP diastolic 38–82; PULSE 57–236; RESP 18; TEMP 36.7–37.2; O2SAT 96–100; BMI 30.4
--- NOTE | 2023-08-07 11:40 | LDADM ---
This patient, Jing Hollingsworth, was admitted to Labor/Delivery/Recovery 102 on 08/07/23 at 11:09. Plans for labor, pain management and were discussed with patient. Patient/family oriented to hospital policies and general routines including ID bracelet, bed and alarms, visiting hours, pain management, procedures, bathroom and other care routines, personal items, smoking policy, room service/diet and guest tray routines, security routines, and visiting hours. Patient/Family are encouraged to report perceived risks to care and to ask questions if they do not understand what they are told or what they should do. See [facility] for further documentation.
[2023-08-07] MEDS: LACTATED RINGERS 1,000 ML 125 ML IV CONT ×2 (11:50→15:34)
[2023-08-07 11:57] LABS: Basophils Percent Auto 0.2 % (0.2-1.2); Eosinophils Percent Auto 0.2 % (0-4.4); Hematocrit 37.2 % (37.0-47.0); Hemoglobin 12.6 g/dL (12.0-15.0); Immature Granulocyte Absolute 0.08 K/mm3 (0.00-0.031); Immature Granulocyte Percent A 0.7 % (0-0.5); Lymphocytes Absolute Auto 1.08 K/mm3 (0.9-3.2); Lymphocytes Percent Auto 9.9 % (18.3-44.2); Mean Corpuscular HGB Conc 33.9 g/dl (32-36); Mean Corpuscular Hemoglobin 31.5 pg (26-34); Mean Platelet Volume 9.3 fl (7.4-10.4); Monocytes Absolute Auto 0.4 K/mm3 (0.1-0.6); Monocytes Percent Auto 3.5 % (2.6-8.5); Neutrophils Absolute Auto 9.4 K/mm3 (1.3-6.7); Neutrophils Percent Auto 85.5 % (45.5-73.1); Platelet Count Result 188 k/mm3 (150-375); Red Cell Distribution Width 12.2 % (11.5-14.5); White Blood Count 10.9 K/mm3 (4.5-10.0)
[2023-08-07 12:49] LABS: HIV 1/2 Ab P24 Ag Result Negative (Negative)
[2023-08-07 13:52] LABS: Rapid Plasma Reagin Non-Reactive (NonReactive)
--- NOTE | 2023-08-07 14:27 | WPDOBADMIT ---
Obstetrics - Admit Note Admission Note: record reviewed. Additions to the history and/or subsequent changes in the physical findings follow. 32 y/o at 40 2/7 weeks here with contractions. Had a c section, then 2 VBACs. She strongly desires trial of labor, and we have had numerous discussions reviewing risks / benefits / alternatives. She is now comfortable with epidural. AVSS NST reactive TOCO: contractions every 2-3 min ABD soft, nontender, gravid, vertex EXT nontender Cervix 7/90/-2. AROM with clear fluid. Vertex. A: IUP at term with labor. Prior , desires TOLAC. P: Reviewed risks/benefits again, and she desires to proceed with labor. Anticipate .
--- NOTE | 2023-08-07 16:56 | PM.OBPRVD ---
OB - Vaginal Delivery Note Procedure Delivery date: 08/07/23 Induction method: None Delivery monitor: External FHT and External Uterine Route of delivery: Laceration Description: None Specimen: Yes (cord blood) Quantitative Blood Loss (ml): 85 Anesthesia type: Epidural Disposition: PACU Complications: None Narrative: 32 y/o at 40 2/7 weeks gestation who presented to the hospital with contractions. Labor was diagnosed. She reiterated that she still wanted TOLAC. Amniotomy was performed with return of clear fluid. She received an epidural for pain control. Her labor progressed and her cervix dilated completely. She pushed with good effort and delivered the infant's head to the perineum. A shoulder dystocia was encountered. Traction on the head and fundal pressure were both strictly avoided. McRobert's maneuver was employed. The posterior (left) shoulder was grasped and rotated counterclockwise, and the dystocia was relieved. The body delivered. The nose and mouth were bulb suctioned. After a brief delay, the cord was clamped and cut. The infant was handed off the field. Cord blood was collected. The placenta delivered spontaneously and was grossly normal in appearance. The usual 3 vessel cord was noted. There were no lacerations. The patient was taken to recovery room in stable condition. The infant went to the nursery. I was present and scrubbed for the entire delivery. [facility] Baby Date of : 08/07/23 Time of : 16:35 Weeks of gestation at delivery: 40 Infant gender: Female Weight (pounds): 8 Weight (ounces): 13 presentation: vertex position: Left Occiput Anterior Placenta delivery description: Spontaneous and Normal Configuration Cord Vessel Description: 3 Vessels and Delayed Cord Clamping
--- NOTE | 2023-08-07 17:00 | P.DS_ITS ---
DS: Admitting Diagnosis Discharge Date 08/09/23 Admitting Diagnosis IUP at 40 2/7 weeks Prior Labor DS: Discharge Diagnosis Discharge Diagnosis (1) , delivered: Code(s): O34.219 - Maternal care for unspecified type scar from previous delivery Status: Acute OB - DS: Summary OB Procedures : None OB Procedures Intrapartum: OB Procedures: : None Peripartum Data Laceration Description: None Time Spent with Patient Time attestation: Total time spent providing and/or coordinating discharge services: DS: Data Data Completed and Pending Labs on day of discharge: Labs from last 24 hours 08/07/23 11:50 WBC 10.9 H RBC 4.00 L Hgb 12.6 Hct 37.2 MCV 93.0 MCH 31.5 MCHC 33.9 RDW 12.2 Plt Count 188 MPV 9.3 Immature Gran % (Auto) 0.7 H Neut % (Auto) 85.5 H Lymph % (Auto) 9.9 L [place] % (Auto) 3.5 Eos % (Auto) 0.2 Baso % (Auto) 0.2 Lymph # (Auto) 1.08 [place] # (Auto) 0.4 Eos # (Auto) 0.0 Baso # (Auto) 0.0 Abs Immat Gran (auto) 0.08 H Absolute Neuts (auto) 9.4 H Absolute Nucleated RBC 0.000 Nucleated RBC % 0.0 RPR Non-reactive HIV 1&2 Ab/P24 Ag 4thGn Negative Blood Type A Positive Antibody Screen Negative Discharge Plan Discharge Attending physician on discharge: Damaso Woods Discharging Clinician: Damaso Woods Patient Disposition: Home, Self-Care Activity: pelvic rest Diet: regular Discharge Instructions: Call or return if temperature above 100.4? F, increased abdominal pain, increased vaginal bleeding or any new problems. Stand Alone Forms: General Discharge Information Follow-up/Referrals: Damaso Woods MD [Physician] - 6 Weeks Discharge Medications: Continued levetiracetam [Keppra] 500 mg tablet 500 mg PO Q12HR 30 Days Qty: 60 11RF Classic 28 mg iron- 800 mcg Tablet 1 tablet PO DAILY acetaminophen [Mapap (acetaminophen)] 325 mg Tablet 650 mg PO Q6H PRN (Reason: Mild Pain (1-3) Or Headache) Qty: 30 0RF Date of admission: 08/07/23 11:09 Primary Care Provider: PHYSICIAN NOT ON STAFF,NONSTAFF Admitting Provider: Damaso Woods Attending physician on admission: Damaso Woods Condition: Stable
[2023-08-07] MEDS: OXYTOCIN 30 UNITS/NS 500 ML 30 UNITS/500 ML BAG 125 UNITS IV CONT (17:16)
[2023-08-07] MEDS: WITCH HAZEL 40 PADS 1 PAD TOPICAL (19:21)
[2023-08-07] MEDS: BENZOCAINE 20% AER SPR (*SP) 56 GM CAN 1 SPRAY TOPICAL (19:21)
--- NOTE | 2023-08-07 19:44 | PC.NURSE ---
Patient transferred to post room #286 via (W/C ). Support person present. Oriented to unit, room, information board, rooming in, admission packet and security measures. Patient verbalizes understanding.
[2023-08-08 01:40] VITALS: BP 125/65; PULSE 77; RESP 18; TEMP 36.8; O2SAT 100
[2023-08-08 04:46] LABS: Hematocrit 36.8 % (37.0-47.0); Hemoglobin 12.1 g/dL (12.0-15.0)
[2023-08-08] MEDS: ACETAMINOPHEN 325 MG TABLET 650 MG PO ×3 (05:58→20:10)
--- NOTE | 2023-08-08 07:29 | PM.OBPNVD ---
OB - PN: Subj Subjective Date/time seen: 08/08/23 07:29 Narrative: Pain OK. OB - PN: Obj Data Labs 08/08/23 04:28 Labs: Laboratory Results - last 24 hr 08/07/23 08/08/23 11:50 04:28 WBC 10.9 H RBC 4.00 L Hgb 12.6 12.1 Hct 37.2 36.8 L MCV 93.0 MCH 31.5 MCHC 33.9 RDW 12.2 Plt Count 188 MPV 9.3 Immature Gran % (Auto) 0.7 H Neut % (Auto) 85.5 H Lymph % (Auto) 9.9 L [place] % (Auto) 3.5 Eos % (Auto) 0.2 Baso % (Auto) 0.2 Lymph # (Auto) 1.08 [place] # (Auto) 0.4 Eos # (Auto) 0.0 Baso # (Auto) 0.0 Abs Immat Gran (auto) 0.08 H Absolute Neuts (auto) 9.4 H Absolute Nucleated RBC 0.000 Nucleated RBC % 0.0 RPR Non-reactive HIV 1&2 Ab/P24 Ag 4thGn Negative Blood Type A Positive Antibody Screen Negative OB - PN A/P Plan Comments: A: PPD#1, doing well. P: Routine care. Exam Psych: Other: AVSS ABD soft, nontender, fundus firm EXT nontender
[2023-08-08 08:11] VITALS: BP 103/63; PULSE 83; RESP 16; TEMP 37.1; O2SAT 98
--- NOTE | 2023-08-08 08:39 | WPDANLDPN2 ---
Anes-Prog Note L&D Date/Time: 08/08/23 08:39 Comfortable throughout: labor and delivery Neuraxial method: epidural Epidural/Spinal procedure site: clean & non-tender Neuro status: Neuro function grossly intact. Cardiovascular status: normal Respiratory status: normal Airway patency: baseline Mental status: baseline Post-Op hydration status: normal Vital Signs: Last Vital Signs Temp 37.1 C 08/08/23 08:11 Pulse 83 08/08/23 08:11 Resp 16 08/08/23 08:11 BP 103/63 08/08/23 08:11 Pulse Ox 98 08/08/23 08:11 O2 Del Method Room Air 08/07/23 11:40 Pain score (VAS): 2/10 I/O: Intake & Output 08/07/23 08/08/23 08/08/23 23:59 07:59 15:59 Output Total 135 Balance -135 Post-procedural complaints: none Patient feedback: Patient satisfied with anesthetic care.
[2023-08-08] MEDS: MULTIVIT/MIN/PREN/FOL AC/IRON TABLET 1 TAB PO (09:17)
[2023-08-08] MEDS: DOCUSATE SODIUM 100 MG CAPSULE PO (09:17)
[2023-08-08] MEDS: levETIRAcetam 500 MG TABLET PO (10:14)
--- NOTE | 2023-08-08 11:39 | PC.NURSE ---
[id number] Introductions were made, then consulted with patient to assess needs related to . Mother led the conversation with her?plans to feed?her infant and the?experience so far. Encouraged understanding of the benefits of skin to skin (demonstrating unwrapping and placing upright on her chest), stimulating with massage touch, changing positions to encourage wakefulness, how to watch for early feeding cues, responsive feeding, feeding on demand (aiming for 8-12 times in 24 hours, about every 2-3 hours), milk production, hand expression, building/maintaining a milk supply, duration of feeding, signs of adequate intake/output and how to record on the feeding sheet. Mother works well with her infant with encouragement, education and latches her . Education given to the mother of how to visualize the suckling (with good rocking jaw motion), swallows (dropping of the lower jaw) and how to listen for drinking at the breast (the ka sound). was able to maintain latch without pain to mother protecting the nipple with optimal positioning and latching. Reviewed comfort measures of healing with a warm, wet washcloth to rinse breast, then leave open to air-dry, good handwashing when or touching the breast/nipples to prevent infection. Mother voiced understanding of skin to skin, stimulating with massage touch, responsive feedings, hand expressed colostrum, talking to infant to encourage if it has been 2 -2.5 hours since the start of the last , to call if infant does not latch, or if there is discomfort with . Inpatient/outpatient resources provided with feeding sheet, name written on the communication board, and the mom/baby guide. Parents voiced understanding of information, demonstrated learning and will call if there is a request for assistance. Reported to the Primary RN.
[2023-08-08 15:15] VITALS: BP 119/68; PULSE 68; RESP 16; TEMP 36.6; O2SAT 100
[2023-08-08 21:00] VITALS: BP 112/63; PULSE 87; RESP 16; TEMP 36.5; O2SAT 95
[2023-08-09] MEDS: ACETAMINOPHEN 325 MG TABLET 650 MG PO (05:46)
[2023-08-09 07:40] VITALS: BP 119/69; PULSE 70; RESP 18; TEMP 36.8; O2SAT 99
[2023-08-09] MEDS: levETIRAcetam 500 MG TABLET PO (08:07)
[2023-08-09] MEDS: MULTIVIT/MIN/PREN/FOL AC/IRON TABLET 1 TAB PO (08:07)
--- NOTE | 2023-08-09 08:53 | PM.OBPNVD ---
OB - PN: Subj Subjective Date/time seen: 08/09/23 08:53 Narrative: Pain OK. Would like to go home. OB - PN: Obj Data Labs 08/08/23 04:28 OB - PN A/P Plan day: 2 Comments: A: PPD#2, doing well. P: Home to f/u 6 weeks. Exam Psych: Other: AVSS ABD soft, nontender, fundus firm EXT nontender
--- NOTE | 2023-08-09 10:11 | PC.NURSE ---
[id number] Consulted with mother concerning needs and she shared her ability to independently latch optimally without pain. Mother is feeding appropriately for growth of infant and understands stimulating infant to eat if needed. Infant has had appropriate feedings in the last 24 hours meets the outcomes for weight, output, blood sugar and jaundice at this time. Reinforced understanding of milk production, transition of milk, signs of adequate intake, transition of stool, prevention/relief of engorgement, plugged ducts, mastitis, responsive watching for feeding cues, the different methods of stimulating to breastfeed 1-3 hours after the start of the last feeding, community resources, and when to call a provider using the resource of the feeding sheet along with the mom and baby guide. Mother voiced understanding of the information shared, is confident to continue effectively her at home, when to call for assistance, denies any additional assistance or education at this time. Reported to the Primary RN.
[2023-08-12 08:53] VITALS: BP 119/63; PULSE 93; RESP 20; TEMP 36.5; O2SAT 98
== END 2023-08-09 10:10 | disposition home or self-care (01) | DRG 560 ==
LOC: ANHLDR 17:01 → ANHOB2 20:03
PROVIDERS: Admitting Provider Obstetrics & Gynecology; Visit Provider Obstetrics & Gynecology
DX: O34.219 Maternal care for unspecified type scar from previous cesarean delivery (principal); O66.0 Obstructed labor due to shoulder dystocia; Z3A.40 40 weeks gestation of pregnancy; Z37.0 Single live birth
CPT/HCPCS: 36415; 85014; 85018; 85025; 86592; 86703; 86850; 86900; 86901; A9270; G0432; J2590; J2795; J7120